=== PATIENT | female | born 1970 | race Two or more races ===

== ENCOUNTER 2023-12-15 15:20 | Emergency (ER) | payer OTHER ==
[~2023-12-15] VITALS: Ht 160 cm; Wt 94.3 kg
[2023-12-15] MEDS ORDERED: METFORMIN HCL500 MG (15:42)
[2023-12-15] MEDS ORDERED: NAPR500T14 (15:43)
[2023-12-15] MEDS ORDERED: GRALISE600 MG PO (15:43)
[2023-12-15] MEDS ORDERED: LISINOPRIL20 MG PO (15:43)
[2023-12-15] MEDS ORDERED: NORFLEX100MG PO (18:22)
== END 2023-12-15 18:32 | disposition home or self-care (01) ==
LOC: ER 15:22
DX: M54.16 Radiculopathy, lumbar region (principal); E11.9 Type 2 diabetes mellitus without complications; I10 Essential (primary) hypertension